=== PATIENT | female | born 1975 | race African-American/Black ===

== ENCOUNTER 2017-10-28 15:59 | Emergency (ER) | payer SELFPAY ==
[2017-10-28] MEDS ORDERED: Famotidine 20 MG TAB ONE (18:15)
[2017-10-28] MEDS ORDERED: diphenhydrAMINE 25 MG CAP ONE (18:15)
[2017-10-28] MEDS ORDERED: predniSONE 20 MG TAB ONE (18:15)
== END 2017-10-28 18:18 | disposition home or self-care (01) ==
LOC: ERS 15:59
DX: T78.40XA Allergy, unspecified, initial encounter (principal); J45.909 Unspecified asthma, uncomplicated; E05.90 Thyrotoxicosis, unspecified without thyrotoxic crisis or storm; F17.210 Nicotine dependence, cigarettes, uncomplicated
CPT/HCPCS: 99283; J7506